=== PATIENT | female | born 1965 | race American Indian/Alaskan Native ===

== ENCOUNTER 2017-09-16 18:20 | Emergency (ER) | payer OTHER ==
[2017-09-16 18:45] VITALS: BP 138/96
== END 2017-09-16 18:45 | disposition left against medical advice (07) ==
LOC: ED 18:20
DX: L29.8 Other pruritus (principal); Z53.21 Procedure and treatment not carried out due to patient leaving prior to being seen by health care provider

== ENCOUNTER 2017-10-22 12:26 | Emergency (ER) | payer OTHER ==
--- NOTE | 2017-10-22 13:45 | Emergency Department Report ---
ED Back Pain/Injury HPI - General Stated Complaint: BACK PAIN Time Seen by Provider: 10/22/17 13:37 - History of Present Illness Initial Comments: Patient is a 52-year-old female who is presenting with low back pain. Patient states she has a chronically does get worse over the last several days. Patient denies any urinary retention or fecal incontinence. Patient states the pain is just generalized lower back. Patient states pain is 8 out of 10 in severity and worse with movement. Patient also has complaints of chronic itchiness in the bilateral axilla. There is no fevers chills nausea vomiting. Patient states there is no abscess present. Wound drainage. - Related Data Previous Rx's Medication Instructions Recorded Last Taken Type Fluconazole [Diflucan] 150 mg PO ONCE #1 tablet 06/10/14 Unknown Rx metroNIDAZOLE [Flagyl] 500 mg PO Q8H #21 tablet 06/10/14 Unknown Rx Doxycycline Monohydrate 100 mg PO BID #20 capsule 01/16/15 Unknown Rx [Doxycycline Monohydrate CAP] Cyclobenzaprine [Flexeril 10 MG 10 mg PO Q8H PRN #21 tablet 03/08/15 Unknown Rx TAB] HYDROcodone/APAP 7.5-325 [[place] 1 each PO Q6HR PRN #20 tablet 03/08/15 Unknown Rx 7.5-325 mg TAB] Ibuprofen [Motrin] 800 mg PO Q8HR PRN #20 tablet 10/22/17 Unknown Rx Triamcinolone 0.1% [Kenalog 0.1% 1 applic TP TID #1 tube 10/22/17 Unknown Rx CREAM] methOCARBAMOL [Robaxin TAB] 500 mg PO Q6H PRN #15 tablet 10/22/17 Unknown Rx Allergies Allergy/AdvReac Type Severity Reaction Status Date / Time codeine Allergy Swelling Verified 05/18/14 01:59 ED Review of Systems ROS: Stated complaint: BACK PAIN Other details as noted in HPI Comment: All other systems reviewed and negative ED Past Medical Hx - Past Medical History Hx Psychiatric Treatment: Yes (anxiety) - Surgical History Additional Surgical History: Hysterectomy. Lumbar laminectomy 2012 - Social History Smoking Status: Never Smoker Substance Use Type: Alcohol - Medications Home Medications: Home Medications Medication Instructions Recorded Confirmed Last Taken Type Fluconazole [Diflucan] 150 mg PO ONCE #1 tablet 06/10/14 Unknown Rx metroNIDAZOLE [Flagyl] 500 mg PO Q8H #21 tablet 06/10/14 Unknown Rx Doxycycline Monohydrate 100 mg PO BID #20 capsule 01/16/15 Unknown Rx [Doxycycline Monohydrate CAP] Cyclobenzaprine [Flexeril 10 MG 10 mg PO Q8H PRN #21 tablet 03/08/15 Unknown Rx TAB] HYDROcodone/APAP 7.5-325 [[place] 1 each PO Q6HR PRN #20 tablet 03/08/15 Unknown Rx 7.5-325 mg TAB] Ibuprofen [Motrin] 800 mg PO Q8HR PRN #20 tablet 10/22/17 Unknown Rx Triamcinolone 0.1% [Kenalog 0.1% 1 applic TP TID #1 tube 10/22/17 Unknown Rx CREAM] methOCARBAMOL [Robaxin TAB] 500 mg PO Q6H PRN #15 tablet 10/22/17 Unknown Rx ED Physical Exam - General General appearance: alert, in no apparent distress - Head Head exam: Present: atraumatic, normocephalic - Eye Eye exam: Present: normal appearance - ENT ENT exam: Present: mucous membranes moist - Neck Neck exam: Present: normal inspection - Respiratory Respiratory exam: Present: normal lung sounds bilaterally. Absent: respiratory distress - Cardiovascular Cardiovascular Exam: Present: regular rate, normal rhythm. Absent: systolic murmur, diastolic murmur, rubs, gallop - GI/Abdominal GI/Abdominal exam: Present: soft, normal bowel sounds - Extremities Exam Extremities exam: Present: normal inspection - Back Exam Back exam: Present: normal inspection, full ROM, tenderness, paraspinal tenderness (Gen. last) - Neurological Exam Neurological exam: Present: alert, oriented X3 - Psychiatric Psychiatric exam: Present: normal affect, normal mood - Skin Skin exam: Present: warm, dry, intact, normal color, other (bilateral axilla were examined and no abnormality was seen). Absent: rash Critical care attestation.: If time is entered above; I have spent that time in minutes in the direct care of this critically ill patient, excluding procedure time. ED Disposition Clinical Impression: Dermatitis Chronic back pain Qualifiers: Back pain location: low back pain Back pain laterality: bilateral Sciatica presence: without sciatica Qualified Code(s): M54.5 - Low back pain; G89.29 - Other chronic pain Disposition: TO HOME OR SELFCARE Is pt being admited?: No Does the pt Need Aspirin: No Condition: Stable Instructions: Low Back Strain (ED) Prescriptions: Triamcinolone 0.1% [Kenalog 0.1% CREAM] 1 applic TP TID #1 tube Referrals: PRIMARY CARE,MD [Primary Care Provider] - 3-5 Days
== END 2017-10-22 13:45 | disposition home or self-care (01) ==
LOC: ED 12:26
DX: L30.9 Dermatitis, unspecified (principal); M54.5 Low back pain; G89.29 Other chronic pain; F41.9 Anxiety disorder, unspecified; Z90.710 Acquired absence of both cervix and uterus; Z88.5 Allergy status to narcotic agent
CPT/HCPCS: 99282

== ENCOUNTER 2018-11-28 08:54 | Outpatient (CLI) | payer OTHER ==
--- NOTE | 2018-12-01 10:47 | Mammography Report ---
BILATERAL DIGITAL SCREENING MAMMOGRAM WITH CAD INDICATION: Routine screening mammography. TECHNIQUE: Digital bilateral 2D mammography was obtained in the craniocaudal and mediolateral obliq ue projections. This examination was interpreted with the benefit of Computer-Aided Detection analysi s. COMPARISON: 12/01/2014 FINDINGS: Breast Density: The breasts are heterogeneously dense, which may obscure small masses. No mass, architectural distortion or suspicious calcifications. IMPRESSION:No mammographic evidence of malignancy. BI-RADS Category 1: Negative. No mammographic evidence of malignancy. Recommend routine screening m ammography in one year. A "normal" or negative report should not discourage follow up or biopsy of a clinically significant f inding. A written summary of these findings will be mailed to the patient. The patient will be entered into a mammography reporting system which will generate a reminder letter for the patient's next appointmen t at the appropriate interval. [employer] recommends yearly mammograms starting at age 40 and continuing as l armond as a woman is in good health. Breast MRI is recommended for women with an approximate 20-25% or greater lifetime risk of breast cancer, including women with a strong family history of breast or ova cecile cancer or who have been treated for Hodgkin's disease. Signer Name: Adriano Kohler MD Signed: 12/01/2018 10:42 AM Workstation Name: [id number]
== END 2018-11-28 08:55 | disposition home or self-care (01) ==
LOC: SPVWC 08:54
PROVIDERS: ATTEND Internal Medicine
DX: Z12.31 Encounter for screening mammogram for malignant neoplasm of breast (principal); Z90.710 Acquired absence of both cervix and uterus
CPT/HCPCS: 77067